=== PATIENT | female | born 1950 | race Caucasian/White ===

== ENCOUNTER → 2018-01-13 13:27 | Outpatient (POV) | payer MEDICARE, SELFPAY | PROVIDERS: PCP Internal Medicine Adolescent Medicine; Visit Provider Nurse Practitioner Acute Care | DX: Z00.00 Encounter for general adult medical examination without abnormal findings (principal) ==

== ENCOUNTER 2018-02-28 09:11 | Outpatient (CLI) | payer MEDICARE, SELFPAY ==
[2018-02-28 09:43] VITALS: BP 143/77; PULSE 69; RESP 18; TEMP 36.5; O2SAT 98
[2018-02-28 09:58] VITALS: BP 141/76; PULSE 64; RESP 18; O2SAT 97
[2018-02-28 10:13] VITALS: BP 140/77; PULSE 70; RESP 18; O2SAT 98
[2018-02-28 10:32] VITALS: BP 138/72; PULSE 70; RESP 18; O2SAT 97
== END 2018-02-28 10:40 | disposition home or self-care (01) ==
LOC: INF 09:11
PROVIDERS: PCP Internal Medicine Adolescent Medicine; Visit Provider Internal Medicine
DX: D50.9 Iron deficiency anemia, unspecified (principal); T45.4X5A Adverse effect of iron and its compounds, initial encounter
CPT/HCPCS: 96365; J1756

== ENCOUNTER 2018-03-04 09:57 | Outpatient (CLI) | payer MEDICARE, SELFPAY ==
[2018-03-04 09:35] VITALS: BP 137/81; PULSE 74; RESP 18; TEMP 36.6; O2SAT 97
[2018-03-04 10:05] VITALS: BP 131/84; PULSE 71; RESP 18; O2SAT 97
[2018-03-04 10:25] VITALS: BP 127/73; PULSE 68; RESP 18; O2SAT 96
== END 2018-03-04 10:30 | disposition home or self-care (01) ==
LOC: INF 09:58
PROVIDERS: PCP Internal Medicine Adolescent Medicine; Visit Provider Internal Medicine
DX: D50.9 Iron deficiency anemia, unspecified (principal); T45.4X5A Adverse effect of iron and its compounds, initial encounter
CPT/HCPCS: 96365; J1756

== ENCOUNTER 2018-03-07 09:30 | Outpatient (CLI) | payer MEDICARE, SELFPAY ==
[2018-03-07 09:43] VITALS: BP 137/64; PULSE 80; RESP 16; TEMP 36.7; BMI 23.8
[2018-03-07 11:06] VITALS: BP 117/57; PULSE 73; RESP 16; TEMP 36.7; O2SAT 96
== END 2018-03-07 11:06 | disposition home or self-care (01) ==
LOC: INF 09:37
PROVIDERS: PCP Internal Medicine Adolescent Medicine; Visit Provider Internal Medicine
DX: D50.9 Iron deficiency anemia, unspecified (principal); T45.4X5A Adverse effect of iron and its compounds, initial encounter
CPT/HCPCS: 96365; G0463; J1756

== ENCOUNTER 2018-03-11 09:07 | Outpatient (CLI) | payer MEDICARE, SELFPAY ==
[2018-03-11 09:36] VITALS: BP 136/69; PULSE 70; RESP 18; TEMP 36.4; O2SAT 97
[2018-03-11 10:06] VITALS: BP 125/70; PULSE 71; RESP 18; O2SAT 96
[2018-03-11 10:30] VITALS: BP 122/69; PULSE 75; RESP 18; O2SAT 97
== END 2018-03-11 10:35 | disposition home or self-care (01) ==
LOC: INF 09:07
PROVIDERS: PCP Internal Medicine Adolescent Medicine; Visit Provider Internal Medicine
DX: D50.9 Iron deficiency anemia, unspecified
CPT/HCPCS: 96365; J1756

== ENCOUNTER 2018-03-14 09:25 | Outpatient (CLI) | payer MEDICARE, SELFPAY ==
[2018-03-14 10:30] VITALS: BP 120/49; PULSE 67; RESP 18; TEMP 36.7
[2018-03-14 11:00] VITALS: BP 122/49; PULSE 67; RESP 18
== END 2018-03-14 11:15 | disposition home or self-care (01) ==
LOC: INF 09:51
PROVIDERS: PCP Internal Medicine Adolescent Medicine; Visit Provider Internal Medicine
DX: D50.9 Iron deficiency anemia, unspecified (principal)
CPT/HCPCS: 96365; J1756

== ENCOUNTER 2018-03-18 09:30 | Outpatient (CLI) | payer MEDICARE, SELFPAY ==
[2018-03-18 09:55] VITALS: BP 118/63; PULSE 74; RESP 20; TEMP 36.9; O2SAT 96
[2018-03-18 10:20] VITALS: BP 122/70; PULSE 68; RESP 20; TEMP 37.1; O2SAT 96
[2018-03-18 11:00] VITALS: BP 122/78; PULSE 68; RESP 20; TEMP 37.1; O2SAT 96
== END 2018-03-18 11:05 | disposition home or self-care (01) ==
LOC: INF 10:01
PROVIDERS: PCP Internal Medicine Adolescent Medicine; Visit Provider Internal Medicine
DX: D50.9 Iron deficiency anemia, unspecified (principal)
CPT/HCPCS: 96365; J1756

== ENCOUNTER → 2018-10-02 10:00 | Outpatient (CLI) | payer MEDICARE, SELFPAY ==
--- NOTE | 2018-10-02 10:04 | MM_ITS ---
MM Dig screening mamm BI w/CAD CAD Screening COMPARISON: Digital mammograms with CAD 09/23/2017 and 09/21/2016 INDICATION: There is a history of breast cancer patient's first cousin. TECHNIQUE: Standard CC and MLO images were obtained. R2 CAD reviewed. FINDINGS: There is a diffusely dense and heterogenic parenchymal pattern somewhat lessening the sensitivity of mammography. There are scattered benign-appearing microcalcifications in each breast. There are stable tiny nodular densities in the axillary tails of each breast likely small low-lying axillary or intra-mammary nodes. There is no suspicious lesion and there are no suspicious microcalcifications. IMPRESSION: Dense parenchymal pattern with no suspicious lesion seen BI-RADS Category: 2 Benign Finding(s) RECOMMENDED FOLLOW-UP: 1YR - 1 YEAR FOLLOW-UP (A letter has been sent to the patient regarding results of the study.)
== END ==
PROVIDERS: PCP Internal Medicine Adolescent Medicine; Visit Provider Internal Medicine Adolescent Medicine
DX: Z12.31 Encounter for screening mammogram for malignant neoplasm of breast (principal)
CPT/HCPCS: 77067

== ENCOUNTER → 2019-02-17 14:01 | Outpatient (CLI) | payer MEDICARE, SELFPAY ==
--- NOTE | 2019-02-17 14:11 | XR_ITS ---
XR sacroiliac joint BI min 3V CLINICAL INDICATION: ITS.REASON: LOW BACK PAIN,LEFT HIP PAIN ORDERING PHYSICIAN: Brandon Salter MD PATIENT AGE: 68 years Comparison: None FINDINGS: There are postsurgical changes of lower lumbar spine with posterior fusion and interpedicular screws. There is mild sclerosis of the iliac portion of the SI joints with minimal bony spurring consistent with mild osteoarthritis. No effusion or lytic changes evident. IMPRESSION: Mild osteoarthritis of the SI joints
--- NOTE | 2019-02-17 14:11 | XR_ITS ---
XR hip LT 2-3V w/pelvis HISTORY: ITS.REASON: LOW BACK PAIN,LEFT HIP PAIN ORDERING PHYSICIAN: Brandon Salter MD PATIENT AGE: 68 years COMPARISON: None FINDINGS: There are postsurgical changes of lower lumbar spine with interpedicular screws and stabilizing right. Mild osteoarthritic changes are present involving the left hip with slight decrease in the joint space medially and mild osteophyte formation. No fracture or dislocation. No lytic or blastic change. IMPRESSION: Mild osteoarthritis of left hip
== END ==
PROVIDERS: PCP Internal Medicine Adolescent Medicine; Visit Provider Internal Medicine Adolescent Medicine
DX: M54.5 Low back pain (principal); M25.552 Pain in left hip
CPT/HCPCS: 72202; 73502

== ENCOUNTER 2019-03-09 08:39 | Outpatient (CLI) | payer MEDICARE, SELFPAY ==
[2019-03-09 09:00] VITALS: BP 114/67; PULSE 73; RESP 18; TEMP 36.6; O2SAT 97
[2019-03-09 09:30] VITALS: BP 121/61; PULSE 68; RESP 18
== END 2019-03-09 09:30 | disposition home or self-care (01) ==
LOC: INF 08:39
PROVIDERS: Visit Provider Internal Medicine Medical Oncology
DX: D50.9 Iron deficiency anemia, unspecified (principal); T45.4X5A Adverse effect of iron and its compounds, initial encounter
CPT/HCPCS: 96365; J1439

== ENCOUNTER 2019-03-16 08:57 | Outpatient (CLI) | payer MEDICARE, SELFPAY ==
[2019-03-16 09:25] VITALS: BP 130/72; PULSE 68; RESP 20; TEMP 36.9; O2SAT 95
[2019-03-16 09:50] VITALS: BP 128/72; PULSE 68; RESP 20; TEMP 36.9; O2SAT 95
== END 2019-03-16 09:50 | disposition home or self-care (01) ==
LOC: INF 08:57
PROVIDERS: Visit Provider Internal Medicine Medical Oncology
DX: D50.9 Iron deficiency anemia, unspecified (principal); T45.4X5A Adverse effect of iron and its compounds, initial encounter
CPT/HCPCS: 96365; J1439

== ENCOUNTER → 2019-07-17 14:21 | Outpatient (CLI) | payer MEDICARE, SELFPAY ==
--- NOTE | 2019-07-17 14:27 | XR_ITS ---
PROCEDURE: XR RIBS RT 2V CLINICAL INDICATION: RT SIDE CHEST PAIN COMPARISON: No exams were available for comparison FINDINGS: No fracture, lytic, or blastic change evident. Postsurgical changes lumbar spine. IMPRESSION: Negative right ribs Dictated by: Mo Mayberry MD 07/17/2019 14:53 Signed by: <Electronically signed by Mo Mayberry MD in [place]> 07/17/2019 14:53
--- NOTE | 2019-07-17 14:27 | XR_ITS ---
PROCEDURE: XR CHEST 2V CLINICAL HISTORY: RT SIDE CHEST PAIN Right lower chest pain COMPARISON: No exams were available for comparison FINDINGS: The cardiomediastinal silhouette and pulmonary vascularity are within normal limits. The lungs are clear without infiltrates, suspicious nodules, or pleural effusions. Postsurgical changes lumbar spine IMPRESSION: No acute findings. Dictated by: Mo Mayberry MD 07/17/2019 14:54 Signed by: <Electronically signed by Mo Mayberry MD in [place]> 07/17/2019 14:54
== END ==
PROVIDERS: PCP Internal Medicine Adolescent Medicine; Visit Provider Internal Medicine Adolescent Medicine
DX: R07.9 Chest pain, unspecified (principal)
CPT/HCPCS: 71046; 71100

== ENCOUNTER → 2019-07-20 15:28 | Outpatient (POV) | payer MEDICARE, SELFPAY | PROVIDERS: PCP Internal Medicine Adolescent Medicine; Visit Provider Nurse Practitioner Family | DX: Z00.00 Encounter for general adult medical examination without abnormal findings (principal) ==

== ENCOUNTER → 2019-10-12 13:22 | Outpatient (CLI) | payer MEDICARE, SELFPAY ==
--- NOTE | 2019-10-12 13:26 | MM_ITS ---
PROCEDURE: MM DIG SCREENING MAMM BI W/CAD Patient Age:69Y CLINICAL INDICATION: Routine screening mammogram. No hormones no new complaints. Family history paternal 1st cousin with breast cancer COMPARISON: [facility] DIGITAL MAMM-SCREEN BILATERAL from 05/02/2011 [facility] DIGITAL MAMM-SCREEN BILATERAL from 05/08/2012 [facility] DIG MAMM-SCREEN JASON from 09/03/2014 [facility] DIG MAMM-SCREEN JASON from 09/16/2015 [facility] DIG MAMM-SCREEN JASON from 09/21/2016 [facility] DIG MAMM-SCREEN JASON W/CAD from 09/23/2017 [facility] MM Dig screening mamm BI w/CAD from 10/02/2018 TECHNIQUE: Standard CC and MLO images were obtained. R2 CAD reviewed. FINDINGS: Areas of dense heterogeneous breast tissue pattern most evident at the central breast and upper outer quadrant but this decreases sensitivity of mammography. Similar overall architecture to previous studies with no focal new areas of significant concern. Mom Prior films are helpful and demonstrating this similar architecture. Self-breast examwould be encouraged in this patient Right breast. No new areas of significant concern. Areas of density seen today correspond with previous features dating back to least 2014 the Left breast but no significant new areas of concern but there are few small benign punctate calcifications bilaterally. Benign appearing and can be followed but IMPRESSION: Stable mammogram. No new areas of concern Mammography is somewhat limited in regions of the denser breast but overall no new areas of concern. If any palpable areas arise ultrasound is useful complement/augment to mammography in breast of this denser character BI-RAD Category: 2 Benign Finding(s) FOLLOW-UP: 1YR 1 Year Follow-up (A letter has been sent to the patient regarding results of the study.) Dictated by: Kavon Donahue MD 10/15/2019 08:47 Electronically signed by Kavon Donahue MD in [place] 10/15/2019 08:47
== END ==
PROVIDERS: PCP Internal Medicine Adolescent Medicine; Visit Provider Internal Medicine Adolescent Medicine
DX: Z12.31 Encounter for screening mammogram for malignant neoplasm of breast (principal)
CPT/HCPCS: 77067

== ENCOUNTER 2020-02-23 09:15 | Outpatient (CLI) | payer MEDICARE, SELFPAY ==
[2020-02-23 09:42] VITALS: BP 123/78; PULSE 62; RESP 18; TEMP 36.9; O2SAT 99
[2020-02-23 10:20] VITALS: BP 119/75; PULSE 61; RESP 18; O2SAT 100
== END 2020-02-23 10:20 | disposition home or self-care (01) ==
LOC: INF 09:15
PROVIDERS: Visit Provider Internal Medicine Medical Oncology
DX: D50.9 Iron deficiency anemia, unspecified (principal); T45.4X5A Adverse effect of iron and its compounds, initial encounter
CPT/HCPCS: 96365; J1439

== ENCOUNTER 2020-03-01 09:27 | Outpatient (CLI) | payer MEDICARE, SELFPAY ==
[2020-03-01 09:35] VITALS: BP 143/66; PULSE 68; RESP 20; TEMP 36.9; O2SAT 95
[2020-03-01 10:10] VITALS: BP 146/77; PULSE 68; RESP 20
== END 2020-03-01 10:15 | disposition home or self-care (01) ==
LOC: INF 09:27
PROVIDERS: Visit Provider Internal Medicine Medical Oncology
DX: D50.9 Iron deficiency anemia, unspecified (principal); T45.4X5A Adverse effect of iron and its compounds, initial encounter
CPT/HCPCS: 96365; J1439

== ENCOUNTER → 2020-07-25 14:35 | Outpatient (POV) | payer MEDICARE, SELFPAY | PROVIDERS: Visit Provider Nurse Practitioner Family | DX: Z00.00 Encounter for general adult medical examination without abnormal findings (principal) ==

== ENCOUNTER → 2020-08-02 08:31 | Outpatient (CLI) | payer MEDICARE, SELFPAY ==
--- NOTE | 2020-08-02 08:36 | US_ITS ---
PROCEDURE: US ABDOMEN LIMITED CLINICAL INDICATION: ANEMIA DUE TO BLOOD LOSS, ULCERATION OF INTESTINE COMPARISON: No exams were available for comparison FINDINGS: PANCREAS: Unremarkable. No obvious mass or abnormal fluid collection. No ductal dilatation LIVER: No focal liver lesions demonstrated. Homogeneous echogenicity. No intrahepatic biliary ductal dilatation evident. There is appropriate direction of blood flow within a non dilated portal vein RIGHT KIDNEY: There is minimal ectasia of the right renal collecting system nonspecific GALLBLADDER: No gallstones, gallbladder wall thickening, pericholecystic fluid, or biliary dilatation. IMPRESSION: Unremarkable limited abdominal ultrasound as detailed above disc Dictated by: Mo Mayberry MD 08/02/2020 10:00 Mo Mayberry MD in [place] 08/02/2020 10:00
== END ==
PROVIDERS: PCP Internal Medicine Adolescent Medicine; Visit Provider Nurse Practitioner Family
DX: R94.5 Abnormal results of liver function studies (principal); K63.3 Ulcer of intestine; D50.0 Iron deficiency anemia secondary to blood loss (chronic); Z79.1 Long term (current) use of non-steroidal anti-inflammatories (NSAID)
CPT/HCPCS: 76705

== ENCOUNTER → 2020-09-19 07:51 | Outpatient (CLI) | payer MEDICARE, SELFPAY ==
--- NOTE | 2020-09-19 07:56 | MR_ITS ---
PROCEDURE: MR SHOULDER RT WO CON CLINICAL INDICATION: ROTATOR CUFF SYNDROME Shoulder pain COMPARISON: No exams were available for comparison TECHNIQUE: Routine multiplanar multi echo sequences are performed without gadolinium enhancement. FINDINGS: There is complete tear of the supraspinatus tendon with retraction of the musculotendinous fibers. There is high-riding humeral head with severe subacromial stenosis. The infraspinatus tendon is thinned distally. There may be a partial tear but no complete tear is felt to be evident. Follow-up the teres minor and subscapularis tendons are intact. There is some tendinopathy/tendinosis of the subscapularis tendon. The bicipital tendon is in place. Small amount fluid is present in the bicipital tendon sheath. No obvious labral tear. Fluid is present in the shoulder joint and in the sub coracoid region. There is increased T2 signal within the soft tissues anterior to the proximal humerus in the region of the short head of the biceps brachii muscle laterally possibly due to tear of this muscle. There is loculated fluid in this area as well measuring approximately 4 cm in length and 0.7 cm in transverse dimension IMPRESSION: 1. Complete tear of the supraspinatus tendon with retraction of the musculotendinous fibers and with subacromial stenosis. 2. Suspected at least partial tear of the infraspinatus tendon. 3. There is loculated fluid collection along the proximal aspect of the humerus anteriorly with some increased T2 of the surrounding soft tissues in this area. Tear of the short head of the biceps brachii muscle is considered. 4. Subcoracoid bursitis Dictated by: Mo Mayberry MD 09/19/2020 13:10 Mo Mayberry MD in [place] 09/19/2020 13:10
== END ==
PROVIDERS: PCP Internal Medicine Adolescent Medicine; Visit Provider Internal Medicine Adolescent Medicine
DX: M75.101 Unspecified rotator cuff tear or rupture of right shoulder, not specified as traumatic (principal)
CPT/HCPCS: 73221

== ENCOUNTER → 2020-11-07 11:00 | Outpatient (CLI) | payer MEDICARE, SELFPAY ==
--- NOTE | 2020-11-07 11:03 | MM_ITS ---
PROCEDURE: MM DIG SCREENING MAMM BI W/CAD Digital Breast Tomosynthesis Included CLINICAL INDICATION: SCREENING History of breast cancer in the patient's paternal 1st cousin. COMPARISON: MG [facility] DIG MAMM-SCREEN JASON W/CAD from 09/23/2017 [facility] MM Dig screening mamm BI w/CAD from 10/02/2018 MG MM DIG SCREENING MAMM BI W/CAD from 10/12/2019 TECHNIQUE: Standard CC and MLO images and 3D Tomosynthesis was obtained. R2 CAD reviewed. FINDINGS: Moderate diffuse fibroglandular densities are seen in both breasts. There are few benign-appearing microcalcifications in each breast. There are no CAD markers. There is no suspicious lesion in either breast and no suspicious microcalcifications. IMPRESSION: Moderate diffuse breast density with no suspicious lesions seen BI-RAD Category: 2 Benign Finding(s) FOLLOW-UP: 1YR 1 Year Follow-up (A letter has been sent to the patient regarding results of the study.) Dictated by: Dr. Dao Pereira MD 11/09/2020 11:02 Dr. Dao Pereira MD in [place] 11/09/2020 11:02
== END ==
PROVIDERS: PCP Internal Medicine Adolescent Medicine; Visit Provider Internal Medicine Adolescent Medicine
DX: Z12.31 Encounter for screening mammogram for malignant neoplasm of breast (principal)
CPT/HCPCS: 77063; 77067

== ENCOUNTER → 2021-11-02 10:03 | Outpatient (CLI) | payer MEDICARE, SELFPAY ==
--- NOTE | 2021-11-02 10:05 | MM_ITS ---
PROCEDURE INFORMATION: Exam: MG Bilateral Screening 3D Mammography Exam date and time: 11/02/2021 10:05 AM Age: 71 years old Clinical indication: Screening mammogram TECHNIQUE: Imaging protocol: Bilateral screening tomosynthesis and 2D mammography including computer-aided detection (CAD) when performed. COMPARISON: 1. MG MM DIG SCREENING MAMM BI W/CAD 11/07/2020 11:07 AM 2. MG MM DIG SCREENING MAMM BI W/CAD 10/12/2019 1:46 PM 3. MG [facility] MM Dig screening mamm BI w/CAD 10/02/2018 10:18 AM 4. MG [facility] DIG MAMM-SCREEN JASON W/CAD 09/23/2017 9:24 AM FINDINGS: MAMMOGRAPHY: Breast composition: The breast tissue is heterogeneously dense, which may obscure small masses. Mass: None. Architectural distortion: No new or suspicious architectural distortion. Calcifications: No new or suspicious calcifications are present Asymmetric density: No new or suspicious asymmetric density is present Skin thickening: None. Axillary adenopathy: None. IMPRESSION: No mammographic evidence of malignancy. Recommend annual screening mammography unless otherwise clinically indicated. ASSESSMENT: BI-RADS category 1: Negative
== END ==
PROVIDERS: PCP Internal Medicine Adolescent Medicine; Visit Provider Internal Medicine Adolescent Medicine
DX: Z12.31 Encounter for screening mammogram for malignant neoplasm of breast (principal)
CPT/HCPCS: 77063; 77067

== ENCOUNTER → 2022-09-18 13:00 | Outpatient (POV) | payer MEDICARE, SELFPAY ==
--- NOTE | 2022-09-18 13:21 | EXP.PAIN.OV ---
HPI Data of Consult Patient: new to practice Consult date: 09/18/22 Requesting Physician: Rhianna Campos APRN Primary Care Provider: Brandon Salter MD Consult Narrative Reason for consult: Generalized joint pain History of present illness: Ms. Daniels is a 72 year old female who presents today as a new patient from Dr. Morales's office. Today she rates her pain a 6 out of 10. Patient states her pain is in all of her major joints as well as her low back that radiates into her hips and legs. Patient denies any specific trauma or injury other than a fall back in 2004 where she slipped on ice and her feet came out from under her and hit her butt hard. She states this pain has been going on for years and has worsened over time. Patient describes this as a aching, throbbing sensation like a toothache that is worse with increased activity. Patient also states she is recently had more pain around her right pelvic bone and that she previously had injections for the same pain on her left side at Dr. Morales's office and was told it was a bursa that was inflamed. She is interested in injections at this site. Patient states she frequently thinks that it is majority arthritis that she has been treated for since 2004. Patient had been up until the last weeks taking NSAIDs to treat her pain however her kidney function labs were elevated and she was told to stop all related medications. Patient states that she has tried Tylenol in the past however it did not provide any improvement of her symptoms. Patient states she has had 2 back surgeries including laminectomies and spinal fusions in the past. Patient does state that she also has a right shoulder rotator cuff tear that she was previously seen by physical therapy for. She also has had bilateral partial knee replacements in the past. Patient states she frequently has cramping at night in her lower extremities and states she was told she had nerve damage on the left side and a prior CT did show a pinched nerve. Patient has been to a chiropractor within the last year and states it did provide some improvement of her symptoms. She states heat helps more than ice however it is only temporary. Patient does use Voltaren gel that provides some improvement of her symptoms. Patient states she did have an old prescription from a wrist surgery of tramadol and that she has taken to help with some of her pain symptoms and it did provide significant improvement. Patient also did state that she has a history of GI bleeds that was treated by Dr. Steele. Patient's Josesito has been reviewed and is appropriate. CC: Rhianna Campos APRN [facility] Medical History (Updated 09/18/22 @ 16:24 by Rhianna Campos APRN) Anemia Arthritis Carpal tunnel syndrome on both sides Cataracts, bilateral GERD (gastroesophageal reflux disease) HLD (hyperlipidemia) HTN (hypertension) Surgical History (Updated 09/18/22 @ 13:37 by Paula Fountain RN) History of hysterectomy History of tonsillectomy Myringotomy tube status Social History (Updated 09/18/22 @ 13:38 by Paula Fountain RN) Smoking Status: Never smoker alcohol intake: never substance use type: denies use current occupational status: retired Travel in the last 8 weeks: None household members: children housing: house current occupational exposures/hazards: Yes Review of Systems Review of Systems Review of systems:: pertinent systems reviewed and negative unless documented below Review of systems (narrative): Review of Systems: General: No recent weight changes, no fever, no sleep disturbances Respiratory: No cough, no shortness of air, no recurring pulmonary infections Cardiovascular/peripheral vascular: No chest pain, no palpitations, no edema, no shortness of breath Gastrointestinal: No new onset incontinence, normal bowel movements reported Genitourinary: No new onset incontinence Musculoskeletal: Generalized joint pains, low back pain Psychiatric:
[2022-09-18 13:31] VITALS: BP 145/60; PULSE 76; RESP 18; TEMP 36.7; O2SAT 99; BMI 24.7
== END ==
PROVIDERS: PCP Internal Medicine Adolescent Medicine; Visit Provider Nurse Practitioner Family
DX: M51.16 Intervertebral disc disorders with radiculopathy, lumbar region (principal); M96.1 Postlaminectomy syndrome, not elsewhere classified; M47.816 Spondylosis without myelopathy or radiculopathy, lumbar region; M25.50 Pain in unspecified joint; M79.604 Pain in right leg; M79.605 Pain in left leg
CPT/HCPCS: 99202; G0463

== ENCOUNTER 2022-10-02 11:09 | Day surgery (SDC) | payer MEDICARE, SELFPAY ==
[2022-10-02 11:26] VITALS: BP 152/80; PULSE 70; RESP 18; TEMP 36.4; O2SAT 100; BMI 22.4
[2022-10-02 11:44] VITALS: BP 106/67; PULSE 83; RESP 18; O2SAT 98
[2022-10-02 11:46] VITALS: BP 106/67; PULSE 83; RESP 18; O2SAT 98
[2022-10-02 11:50] VITALS: BP 156/75; PULSE 57; RESP 18; O2SAT 99
--- NOTE | 2022-10-02 12:08 | EXP.PAIN.PRO ---
Procedure Date: 10/02/22 Time: 11:50 Anesthesiologist:: Zain Jenkins CRNA Complications:: None Pre-procedure Diagnosis:: Right anterior iliac crest pain Post-procedure Diagnosis:: Same. Indications for Procedure:: Patient is a pleasant 72-year-old female that comes to our clinic today for right anterior iliac crest trigger point injection. She has extreme point tenderness over the right anterior iliac crest area. Patient is able to pinpoint the area of worst pain with her thumb. A marker was placed at this area and injected. Patient is had this pain before. She had it injected in a similar fashion in the past with success. Procedure Details:: Details of the procedure were explained to the patient. The patient was taken to procedure room placed in the supine position. The area over the right iliac crest was cleansed using chlorhexidine as a cleansing solution. Identifying the marker the patient has placed over the painful area of the right anterior iliac crest a 25-gauge needle was used to access the superior anterior margin of the right iliac crest. In a fanning fashion 4 cc of 0.25% Marcaine +4 cc of 1% lidocaine and 40 mg of Depo-Medrol was injected. Patient tolerated the procedure without difficulty. There were no complications. Plan and Disposition:: Patient was reevaluated 10 minutes post procedure. She reports no pain in the right anterior iliac crest area.
== END 2022-10-02 11:50 | disposition home or self-care (01) ==
LOC: SC.PAINP 11:11
PROVIDERS: PCP Internal Medicine Adolescent Medicine; Visit Provider Nurse Anesthetist, Certified Registered
DX: M51.16 Intervertebral disc disorders with radiculopathy, lumbar region (principal); M96.1 Postlaminectomy syndrome, not elsewhere classified; M79.604 Pain in right leg; M79.605 Pain in left leg; M47.816 Spondylosis without myelopathy or radiculopathy, lumbar region; M25.59 Pain in other specified joint
CPT/HCPCS: 20552; J1040

== ENCOUNTER → 2022-10-03 10:40 | Outpatient (CLI) | payer MEDICARE, SELFPAY ==
--- NOTE | 2022-10-03 10:48 | MR_ITS ---
FINAL REPORT CLINICAL HISTORY: LOWER BACK PAIN LOWER BACK PAIN PAIN DOWN LEFT LEG HX OF LOWER BACK SURGERY FINDINGS: Multiplanar MR imaging of the lumbar spine was performed without contrast. On the sagittal T2-weighted images, there is abnormal decreased signal throughout the lumbar discs. The vertebrae are of normal height. There is grade 1 spondylolisthesis of L3 on L4. There is moderate disc space narrowing L2-3 through L5-S1. There is extensive magnetic artifact posterior to the L5 vertebrae related to fusion hardware. L1-2: There is no significant canal stenosis or neural foraminal narrowing. L2-3: There is a moderate diffuse disc bulge. There is endplate hypertrophy. Is no significant canal stenosis. There is moderate to high-grade right and mild left neural foraminal narrowing. L3-4: There is a moderate diffuse disc bulge extension weighted by grade 1 spondylolisthesis. There is no significant canal stenosis. There is moderate right and mild left neural foraminal narrowing. L4-5: There is a mild diffuse disc bulge. There is no significant canal stenosis. There is mild right neural foraminal narrowing. L5-S1: Assessment is obscured by streak artifact. IMPRESSION: Streak artifact from fusion hardware in the lower lumbar spine. Grade 1 spondylolisthesis of L3 on L4. Diffuse disc bulges most evident at L2-3 and L3-4. Reviewed, Interpreted and Dictated by Baldemar Landeros MD Transcribed by Sofi Rodriguez Authenticated and [facility]
== END ==
PROVIDERS: PCP Internal Medicine Adolescent Medicine; Visit Provider Nurse Practitioner Family
DX: M54.50 Low back pain, unspecified (principal)
CPT/HCPCS: 72148; 76376

== ENCOUNTER → 2022-10-24 08:40 | Outpatient (POV) | payer MEDICARE, SELFPAY ==
[2022-10-24 09:01] VITALS: BP 155/58; PULSE 76; RESP 18; O2SAT 96; BMI 21.2
--- NOTE | 2022-10-24 09:08 | EXP.PAIN.SOA ---
[facility] Pain Management SOAP Note Subjective:: Patient is a pleasant 72-year-old female who presents today for follow-up. We are currently treating the patient for degenerative disc disease of lumbar spine with lumbar radiculopathy symptoms, postlaminectomy syndrome of lumbar spine, low back pain, leg pain, joint pain. Today the patient rates her pain a 6 out of 10. Patient denies any new trauma or injury. Patient denies any change location or type of pain she experiences. Patient states the previous trigger point injection along the right anterior iliac crest did provide significant improvement however it has worn off and she is back close to her baseline. Patient describes this as a achy, throbbing sensation in her low back with numbness and tingling down her legs. Patient states that she frequently has worsening symptoms in her legs at night that causes her to have to get up and move around or reposition multiple times. Patient is currently managed with gabapentin 300 mg once a day from Dr. Morales's office. Patient denies any side effects from this medicine. She states this medicine does seem to improve some of her symptoms. Patient was also prescribed compounding cream however she states that she did not do well with this medication and it caused significant itching. Patient states that she may go back and see Dr. Petey Campos regarding her worsening back symptoms. Her Josesito is [id number]. It has been reviewed and appropriate. Review of Systems: General: No recent weight changes, no fever, no sleep disturbances Respiratory: No cough, no shortness of air, no recurring pulmonary infections Cardiovascular/peripheral vascular: No chest pain, no palpitations, no edema, no shortness of breath Gastrointestinal: No new onset incontinence, normal bowel movements reported Genitourinary: No new onset incontinence Musculoskeletal: Low back pain, leg pain Psychiatric: [Normal mood/affect] Neurological: [Denies weakness in extremities], [denies balance issues] Objective:: Physical Exam: General: Alert and oriented x3, no acute distress, pleasant and cooperative Lungs: Respirations even and unlabored, symmetrical chest expansion Eyes: PERRL Musculoskeletal: Flexion and extension of lumbar [spine] somewhat guarded secondary to pain, [antalgic gait noted] Neurological: Speech clear, no gross sensory deficit Assessment:: Degenerative disc disease of lumbar spine with lumbar radiculopathy symptoms, postlaminectomy syndrome of lumbar spine, low back pain, leg pain, joint pain Plan:: Patient is experiencing worsening symptoms in her low back and bilateral lower extremities. At this time the patient would like to wait on any additional injective therapy. I have discussed with the patient that she may benefit from the addition of ropinirole 0.25 mg at night. She would like to proceed forward with this plan of care. I will order a 14-day supply of this medication and the patient will contact us if this does help her symptoms for additional refills. Patient will return to clinic in 3 months for reevaluation of symptoms, medication refill if indicated and follow-up. Patient has been instructed to contact the clinic with any concerns before the next appointment. Dr. Marie has reviewed this note and agrees with this plan of care. This note was dictated using voice recognition software and make contain errors or omissions. [facility] Medical History Anemia Arthritis Carpal tunnel syndrome on both sides Cataracts, bilateral GERD (gastroesophageal reflux disease) HLD (hyperlipidemia) HTN (hypertension) Surgical History History of hysterectomy History of tonsillectomy Myringotomy tube status Family History (Updated 10/02/22 @ 11:28 by Jessica Rodriguez RN) Other No significant family history Social History (Reviewed 10/02/22 @ 11:28 by Zora
== END ==
PROVIDERS: PCP Internal Medicine Adolescent Medicine; Visit Provider Nurse Practitioner Family
DX: M51.16 Intervertebral disc disorders with radiculopathy, lumbar region (principal); M96.1 Postlaminectomy syndrome, not elsewhere classified; M79.606 Pain in leg, unspecified; M25.50 Pain in unspecified joint; Z79.899 Other long term (current) drug therapy
CPT/HCPCS: 99212; G0463

== ENCOUNTER → 2022-11-15 10:56 | Outpatient (CLI) | payer MEDICARE, SELFPAY ==
--- NOTE | 2022-11-15 11:03 | MM_ITS ---
PROCEDURE INFORMATION: Exam: MG Bilateral Screening 3D Mammography Exam date and time: 11/15/2022 10:59 AM Age: 72 years old Clinical indication: Screening examination TECHNIQUE: Imaging protocol: Bilateral Screening tomosynthesis and 2D mammography including computer-aided detection (CAD) when performed. COMPARISON: 1. MG MM DIG SCREENING MAMM BI W/CAD 11/02/2021 10:04 AM 2. MG MM DIG SCREENING MAMM BI W/CAD 11/07/2020 11:07 AM FINDINGS: MAMMOGRAPHY: Breast composition: The breasts are extremely dense, which lowers the sensitivity of mammography. Mass: None. Architectural distortion: None. Calcifications: No suspicious calcifications. Asymmetric density: None. Skin thickening: None. Axillary adenopathy: None. IMPRESSION: No mammographic evidence of malignancy. Annual screening is recommended unless otherwise clinically indicated. ASSESSMENT: BI-RADS Category 1: Negative
== END ==
PROVIDERS: PCP Internal Medicine Adolescent Medicine; Visit Provider Internal Medicine Adolescent Medicine
DX: Z12.31 Encounter for screening mammogram for malignant neoplasm of breast (principal)
CPT/HCPCS: 77063; 77067

== ENCOUNTER → 2023-11-20 10:02 | Outpatient (CLI) | payer MEDICARE, SELFPAY ==
--- NOTE | 2023-11-20 10:07 | MM_ITS ---
PROCEDURE INFORMATION: Exam: MG Bilateral Screening 3D Mammography Exam date and time: 11/20/2023 9:54 AM Age: 73 years old Clinical indication: Screening mammogram TECHNIQUE: Imaging protocol: Bilateral Screening tomosynthesis and 2D mammography including computer-aided detection (CAD) when performed. COMPARISON: 1. MG MM DIG SCREENING MAMM BI W/CAD 11/15/2022 10:59 AM 2. MG MM DIG SCREENING MAMM BI W/CAD 11/02/2021 10:04 AM 3. MG MM DIG SCREENING MAMM BI W/CAD 11/07/2020 11:07 AM 4. MG MM DIG SCREENING MAMM BI W/CAD 10/12/2019 1:46 PM FINDINGS: MAMMOGRAPHY: Breast composition: The breast is heterogeneously dense, which may obscure small masses. Mass: None. Architectural distortion: No new or suspicious architectural distortion. Calcifications: No new or suspicious calcifications are present Asymmetric density: No new or suspicious asymmetric density is present Skin thickening: None. Axillary adenopathy: None. IMPRESSION: No mammographic evidence of malignancy. Recommend annual screening mammography unless otherwise clinically indicated. ASSESSMENT: BI-RADS category 1: Negative
== END ==
LOC: RAD 10:03
PROVIDERS: PCP Internal Medicine Adolescent Medicine; Visit Provider Internal Medicine Adolescent Medicine
DX: Z12.31 Encounter for screening mammogram for malignant neoplasm of breast (principal)
CPT/HCPCS: 77063; 77067

== ENCOUNTER 2024-11-23 08:24 | Outpatient (CLI) | payer MEDICARE, SELFPAY ==
--- NOTE | 2024-11-23 08:27 | MM_ITS ---
PROCEDURE INFORMATION: Exam: MG Bilateral Screening 3D Mammography Exam date and time: 11/23/2024 8:12 AM Age: 74 years old Clinical indication: Screening examination TECHNIQUE: Imaging protocol: Bilateral Screening tomosynthesis and 2D mammography including computer-aided detection (CAD) when performed. COMPARISON: 1. MG MM DIG SCREENING MAMM BI W/CAD 11/20/2023 9:54 AM 2. MG MM DIG SCREENING MAMM BI W/CAD 11/15/2022 10:59 AM FINDINGS: MAMMOGRAPHY: Breast composition: The breasts are heterogeneously dense, which may obscure small masses. Mass: None. Architectural distortion: None. Calcifications: No suspicious calcifications. Asymmetric density: None. Skin thickening: None. Axillary adenopathy: None. IMPRESSION: No mammographic evidence of malignancy. Annual screening is recommended unless otherwise clinically indicated. ASSESSMENT: BI-RADS Category 1: Negative.
== END 2024-11-23 23:59 | disposition home or self-care (01) ==
LOC: RAD 08:24
PROVIDERS: PCP Internal Medicine Adolescent Medicine; Visit Provider Internal Medicine Adolescent Medicine
DX: Z12.31 Encounter for screening mammogram for malignant neoplasm of breast (principal)
CPT/HCPCS: 77063; 77067